=== PATIENT | female | born 1970 | race Caucasian/White ===

== ENCOUNTER → 2021-03-27 | Outpatient (CLI) | payer BC, OTHER ==
[~2021-03-27] MED LIST: BUPIVACAINE MPF 0.5% 10 ML VIAL. INT ART ONE; IOHEXOL 180 MG/ML 10 ML VIAL. INT ART ONE; LIDOCAINE 1% Multi-Dose 20 ML VIAL. ID ONE; methylPREDNISolone ACETATE 40 MG/ML VIAL. INT ART ONE
--- NOTE | 2021-03-30 14:46 | KCIC ---
Fluoroscopically guided steroid injection of the right shoulder 03/27/2021 Clinical history: Chronic right shoulder pain. Technique: After the risks and benefits of the procedure were explained to the patient, written infor med consent was obtained. The anterior skin surface of the right shoulder was prepped and draped in s terile fashion. 1% lidocaine was used as local anesthetic. Under fluoroscopic guidance, a 22-gauge sp inal needle was advanced into the anterior aspect of the right glenohumeral joint. Intra-articular po sition of the needle was confirmed with 5 cc of Isovue 180. Following this a solution of 4 cc of 0.1% lidocaine, 4 cc of lidocaine and 80 mg of Depo-Medrol were injected into the right glenohumeral join t. Following this the needle was removed and hemostasis achieved at the puncture site. A sterile band age was placed on the skin puncture site. The patient tolerated the procedure well and there were no immediate complications. The total fluoroscopic time for this study was 40 seconds. 1 digital fluoros copic captured radiograph of the right shoulder was obtained. Impression: Technically successful injection of the right shoulder joint under fluoroscopy as outline d above. Electronically signed by: Chris Silverman MD (03/30/2021 2:44 PM) [id number]
== END | disposition home or self-care (01) ==
LOC: KCIC 14:26
PROVIDERS: ATTEND Orthopaedic Surgery Sports Medicine
DX: M25.511 Pain in right shoulder (principal)
CPT/HCPCS: 20610; 77002; J1030; J3490; Q9965